=== PATIENT | female | born 1975 | race Caucasian/White ===

== ENCOUNTER 2017-08-29 15:00 | Emergency (ER) | payer BC, OTHER ==
[~2017-08-29] VITALS: Ht 162.6 cm; Wt 58.0 kg
[2017-08-29 15:07] VITALS: BP 144/81; PULSE 76; RESP 16; TEMP 97.7; O2SAT 98
[2017-08-29] MEDS ORDERED: SODIUM CHLOR 0.9% 1000 ML INJ 1,000 ML IV SCH (17:04)
[2017-08-29 17:15] VITALS: O2SAT 100
[2017-08-29] MEDS ORDERED: SODIUM CHLORIDE 0.9% FLUSH 10 ML FLUSH IV FLUSH PRN (17:15)
[2017-08-29] MEDS ORDERED: MORPHINE SULFATE 4 MG/ML INJ IV PUSH ONE (17:15)
[2017-08-29] MEDS ORDERED: ONDANSETRON HCL 4 MG/2 ML VIAL IVP ONE (17:15)
[2017-08-29 17:35] VITALS: BP 123/79; PULSE 63; RESP 16; O2SAT 98
[2017-08-29 18:03] LABS: BASOPHIL % 0.5 % (0.0-2.0); EOSINOPHIL % 0.2 % (0.0-4.0); HEMATOCRIT 41.1 % (35.0-46.0); HEMOGLOBIN 14.1 GM/DL (11.6-15.3); LYMPH % 21.3 % (9.0-44.0); LYMPHOCYTE # 1.8 TH/MM3 (1.0-4.8); MEAN CORPUSCULAR HEMOGLOBIN 32.4 PG (27.0-34.0); MEAN CORPUSCULAR HGB CONC 34.4 % (32.0-36.0); MEAN PLATELET VOLUME 8.4 FL (7.0-11.0); MONO % 5.4 % (0.0-8.0); MONOCYTE # 0.4 TH/MM3 (0-0.9); NEUT % 72.6 % (16.0-70.0); PLATELET COUNT 298 TH/MM3 (150-450); RED BLOOD COUNT 4.37 MIL/MM3 (4.00-5.30); RED CELL DISTRIBUTION WIDTH 12.7 % (11.6-17.2); WHITE BLOOD COUNT 8.2 TH/MM3 (4.0-11.0)
[2017-08-29 18:07] LABS: ALBUMIN 4.1 GM/DL (3.4-5.0); ALT (GPT) 25 U/L (10-53); AST (GOT) 14 U/L (15-37); BICARBONATE 26.6 MEQ/L (21.0-32.0); BLOOD UREA NITROGEN 12 MG/DL (7-18); CALCIUM 8.7 MG/DL (8.5-10.1); CHLORIDE 104 MEQ/L (98-107); CREATININE 0.76 MG/DL (0.50-1.00); GLOMERULAR FILTRATION RATE 83 ML/MIN (>89); GLUCOSE,RANDOM 99 MG/DL (74-106); SODIUM (NA) 136 MEQ/L (136-145)
[2017-08-29 18:09] LABS: ALKALINE PHOSPHATASE 43 U/L (45-117); TOTAL BILIRUBIN ADULT 0.4 MG/DL (0.2-1.0)
[2017-08-29 18:27] LABS: PROTHROMBIN TIME - PATIENT 10.1 SEC (9.8-11.6)
--- NOTE | 2017-08-29 18:30 | PD ---
HPI Chief Complaint: Abdominal Pain Time Seen by Provider: 16:49 Travel History International Travel<30 days: No Contact w/Intl Traveler<30days: No Traveled to known affect area: No History of Present Illness HPI The patient is a 42-year-old female who presents to the emergency department for abdominal pain. The patient has 8 year history of umbilical hernia, after the delivery of her son. She has had a reducible hernia there for years, however, she developed pain at 2:15 PM which is been constant. She saw her primary physician, Dr. Boles, who referred her to the emergency department for further evaluation. The pain is periumbilical, nonradiating, tender to palpation, and constant. She denies any nausea or vomiting. She denies any previous abdominal surgeries. Symptoms are moderate. The patient's family states that they called the surgeon, Dr. Lizarraga, earlier today who is aware of the patient. PFSH Past Medical History Medical History: Denies Significant Hx ?: Unknown Past Surgical History Narrative Surgical Breast surgery Social History Alcohol Use: Yes Tobacco Use: No Substance Use: No Allergies-Medications (Allergen,Severity, Reaction): Coded Allergies: No Known Allergies (Unverified , 08/29/17) Review of Systems Except as stated in HPI: all other systems reviewed are Neg Cardiovascular: No: Chest Pain or Discomfort Respiratory: No: Shortness of Breath Gastrointestinal: Positive: Abdominal Pain, No: Nausea, Vomiting Physical Exam Narrative GENERAL: Awake, alert, pleasant 42 year-old female who appears her stated age and is in no acute respiratory distress. She does appear moderate pain. SKIN: Focused skin assessment warm/dry. HEAD: Atraumatic. Normocephalic. EYES: Pupils equal and round. No scleral icterus. No injection or drainage. ENT: No nasal bleeding or discharge. Mucous membranes pink and moist. GASTROINTESTINAL: Abdomen soft, tender palpation just above the umbilicus. Mild guarding. No rigidity. MUSCULOSKELETAL: No obvious deformities. No clubbing. No cyanosis. No edema. NEUROLOGICAL: Awake and alert. No obvious cranial nerve deficits. Motor grossly within normal limits. Normal speech. PSYCHIATRIC: Appropriate mood and affect; insight and judgment normal. Data Data Last Documented VS Vital Signs Date Time Temp Pulse Resp B/P (MAP) Pulse Ox O2 Delivery O2 Flow Rate FiO2 08/29/17 17:35 63 16 123/79 (94) 98 Room Air 08/29/17 15:07 97.7 Orders Orders Complete Blood Count With Diff (08/29/17 17:04) Comprehensive Metabolic Panel (08/29/17 17:04) Lipase (08/29/17 17:04) Lactic Acid (08/29/17 17:04) Iv Access Insert/Monitor (08/29/17 17:04) Ecg Monitoring (08/29/17 17:04) Oximetry (08/29/17 17:04) Morphine Inj (Morphine Inj) (08/29/17 17:15) Ondansetron Inj (Zofran Inj) (08/29/17 17:15) Sodium Chlor 0.9% 1000 Ml Inj (Ns 1000 M (08/29/17 17:04) Sodium Chloride 0.9% Flush (Ns Flush) (08/29/17 17:15) NPO (08/29/17 17:04) Act Partial Throm Time (Ptt) (08/29/17 17:47) Prothrombin Time / Inr (Pt) (08/29/17 17:47) Binder, Surg. Abdominal L/F Ea (08/29/17 18:03) Labs Laboratory Tests Test 08/29/17 17:15 08/29/17 17:20 White Blood Count 8.2 TH/MM3 Red Blood Count 4.37 MIL/MM3 Hemoglobin 14.1 GM/DL Hematocrit 41.1 % Mean Corpuscular Volume 94.0 FL Mean Corpuscular Hemoglobin 32.4 PG Mean Corpuscular Hemoglobin Concent 34.4 % Red Cell Distribution Width 12.7 % Platelet Count 298 TH/MM3 Mean Platelet Volume 8.4 FL Neutrophils (%) (Auto) 72.6 % Lymphocytes (%) (Auto) 21.3 % Monocytes (%) (Auto) 5.4 % Eosinophils (%) (Auto) 0.2 % Basophils (%) (Auto) 0.5 % Neutrophils # (Auto) 6.0 TH/MM3 Lymphocytes # (Auto) 1.8 TH/MM3 Monocytes # (Auto) 0.4 TH/MM3 Eosinophils # (Auto) 0.0 TH/MM3 Basophils # (Auto) 0.0 TH/MM3 CBC Comment DIFF FINAL Differential Comment Blood Urea Nitrogen 12 MG/DL Creatinine 0.76 MG/DL Random Glucose 99 MG/DL Total Protein 8.0 GM/DL Albumin 4.1 GM/DL Calcium Level 8.7 MG/DL Alkaline Phosphatase 43 U/L Aspartate Amino Transf (AST/SGOT) 14 U/L Alanine Aminotransferase (ALT/SGPT) 25 U/L Total Bilirubin 0.4 MG/DL Sodium Level 136 MEQ/L Potassium Level 3.8 MEQ/L Chloride Level 104 MEQ/L Carbon Dioxide Level 26.6 MEQ/L Anion Gap 5 MEQ/L Estimat Glomerular Filtration Rate 83 ML/MIN Lipase 112 U/L Lactic Acid Level 0.6 mmol/L [facility] Medical Decision Making Medical Screen Exam Complete: Yes Emergency Medical Condition: Yes Medical Record Reviewed: Yes Interpretation(s) Laboratory Tests Test 08/29/17 17:15 08/29/17 17:20 White Blood Count 8.2 TH/MM3 Red Blood Count 4.37 MIL/MM3 Hemoglobin 14.1 GM/DL Hematocrit 41.1 % Mean Corpuscular Volume 94.0 FL Mean Corpuscular Hemoglobin 32.4 PG Mean Corpuscular Hemoglobin Concent 34.4 % Red Cell Distribution Width 12.7 % Platelet Count 298 TH/MM3 Mean Platelet Volume 8.4 FL Neutrophils (%) (Auto) 72.6 % Lymphocytes (%) (Auto) 21.3 % Monocytes (%) (Auto) 5.4 % Eosinophils (%) (Auto) 0.2 % Basophils (%) (Auto) 0.5 % Neutrophils # (Auto) 6.0 TH/MM3 Lymphocytes # (Auto) 1.8 TH/MM3 Monocytes # (Auto) 0.4 TH/MM3 Eosinophils # (Auto) 0.0 TH/MM3 Basophils # (Auto) 0.0 TH/MM3 CBC Comment DIFF FINAL Differential Comment Prothrombin Time 10.1 SEC Prothromb Time International Ratio 1.0 RATIO Activated Partial Thromboplast Time 24.3 SEC Blood Urea Nitrogen 12 MG/DL Creatinine 0.76 MG/DL Random Glucose 99 MG/DL Total Protein 8.0 GM/DL Albumin 4.1 GM/DL Calcium Level 8.7 MG/DL Alkaline Phosphatase 43 U/L Aspartate Amino Transf (AST/SGOT) 14 U/L Alanine Aminotransferase (ALT/SGPT) 25 U/L Total Bilirubin 0.4 MG/DL Sodium Level 136 MEQ/L Potassium Level 3.8 MEQ/L Chloride Level 104 MEQ/L Carbon Dioxide Level 26.6 MEQ/L Anion Gap 5 MEQ/L Estimat Glomerular Filtration Rate 83 ML/MIN Lipase 112 U/L Lactic Acid Level 0.6 mmol/L Differential Diagnosis Differential diagnosis includes umbilical hernia, incarcerated hernia, strangulated hernia, mesenteric hernia, pancreatitis. Narrative Course IV was established, labs are drawn and sent, the patient was placed on cardiac telemetry monitoring and continuous pulse oximetry monitoring. I applied mild pressure to the umbilical area, the patient's pain improved, however, several minutes later returned. Therefore, discussed the patient with the patient's surgeon, Dr. Lizarraga, who evaluated the patient in the emergency department. The patient's pain has improved. He applied a dressing over the affected area and we ordered an abdominal binder. The patient is advised to return if symptoms worsen or return. She is advised to apply ice over the affected area and a follow-up with her surgeon on an outpatient basis. Diagnosis Primary Impression: Umbilical hernia Qualified Codes: K42.9 - Umbilical hernia without obstruction or gangrene Patient Instructions: General Instructions Additional Instructions: Please provide the patient a copy of her labs at discharge. Apply ice to the umbilical area. Abdominal binder as directed. Follow-up with your surgeon on an outpatient basis. Return if symptoms return and progress. Disposition: 01 DISCHARGE HOME Condition: Stable Jerson Garcia MD Aug 29, 2017 18:30
[2017-08-29 18:47] VITALS: BP 132/69
--- NOTE | 2017-08-29 19:19 | MB ---
cc: CHRIS LO MD DATE OF CONSULTATION 08/29/17 REASON FOR CONSULTATION Symptomatic umbilical hernia. HISTORY OF PRESENT ILLNESS This is a very pleasant 42 year old woman with a known history of umbilical hernia that has been present since the of her child eight years ago. It was never really a problem until about a month ago where it poked out, was painful and she was able to reduce it which relieved the pain. She was sitting upright in a meeting today, not doing anything really strenuous, and it poked out and was very painful and the pain did not resolve. She went to Dr. Boles's office who referred her to the emergency department for evaluation. She was seen by Dr. Garcia who was able to reduce the hernia which created immediate relief of her pain, but she had almost consequently recurrence of the pain. She was given morphine after I was called on my way in and she is now much more comfortable. Her pain level which was a 10 is now 2-3/10. She had no associated nausea or vomiting, no fevers or chills. She has had no surgery in her umbilicus. ALLERGIES She is not allergic to anything she knows of. PAST MEDICAL HISTORY Non-significant PAST SURGICAL HISTORY Breast implants. She had mild nausea after the anesthesia. SOCIAL HISTORY She has occasional alcohol use. No tobacco abuse. No HIV or hepatitis risk factors. She is an criminal defense attorney. REVIEW OF SYSTEMS Significant for no heart, lung, liver or kidney problems. No history of strokes or seizures. She is not taking any blood thinning medications. PHYSICAL EXAMINATION GENERAL: A well-developed, well-nourished thin woman in mild distress. VITAL SIGNS: Temperature is 97.7, pulse 63, respiratory rate 16, blood pressure 123/79, O2 sat 98-100% on room air. HEENT: She is normocephalic, atraumatic. Pupils are equal, round and reactive to light. Her sclerae are anicteric. Oropharynx is clear without mucosal lesions. There is no oral pharyngeal erythema. NECK: Supple without adenopathy. She has a midline trachea. No jugular distension, no thyromegaly. LUNGS: Clear and equal anteriorly bilaterally. CARDIAC: Heart sounds are regular without murmur, rub or gallop. BREASTS/GENITAL/RECTAL: Exams are deferred. ABDOMEN: Soft and nondistended. There is no tenderness to percussion. There are normal bowel sounds. There is no rebound or guarding at her umbilicus. There is a vague area of fullness in the superior aspect of the umbilicus. There is no overlying erythema. No other skin changes. I can push on this area without significant pain. EXTREMITIES: No cyanosis, clubbing, edema. She has equal radial pulses. NEUROLOGIC: She is awake, alert, oriented. She has equal bilateral machinery mover strength and no gross motor sensory deficit. LABORATORY DATA White count 8.2 with 72.6% neutrophils, hemoglobin 14.1, platelet count 298. Her coagulation studies are pending. Her chemistry showed potassium of 3, creatinine 0.76, a lactic acid 0.6, lipase of 112. ASSESSMENT A 42 year old woman with increasingly symptomatic umbilical hernia. It is presently reduced. Her pain is now controlled. She received one dose of morphine. She has no peritoneal signs. I discussed with the patient, her and her mother the options for treatment. Given the increasing number of symptoms, I recommended she consider operative repair in the near future. I did not feel an emergent surgery was indicated at this time. I placed a dressing with a folded up 4x4 and a Tegaderm over the umbilicus and have ordered an abdominal binder to help her support. I have recommended she use ice and [id number] pain medications as needed. I have provided my cell phone number to the patient, her and her mother to call or text at any time should they have any concerns. Plans will made for operative repair in the near future. I will attempt to make arrangements for her surgery the beginning of this coming week. The patient, her and mother understand and are appreciative of the care. MD SOHAN Anthony/ /6:11 PM /7:02 PM
== END 2017-08-29 18:48 | disposition home or self-care (01) ==
LOC: NEPC 15:00
DX: K42.9 Umbilical hernia without obstruction or gangrene (principal)
CPT/HCPCS: 80053; 83605; 83690; 85025; 85610; 85730; 96374; 96375; 99284; J2270; J2405; J7030